=== PATIENT | female | born 1980 | race Caucasian/White ===

== ENCOUNTER → 2023-08-20 17:38 | Outpatient (REF) | payer BC, SELFPAY | LOC: WDC 17:38 | PROVIDERS: ATTENDING PHYSICIAN Internal Medicine | DX: Z12.31 Encounter for screening mammogram for malignant neoplasm of breast (principal); E07.89 Other specified disorders of thyroid | CPT/HCPCS: 76536; 77063; 77067 ==

== ENCOUNTER → 2024-08-23 19:11 | Outpatient (REF) | payer BC, SELFPAY | LOC: WDC 19:11 | PROVIDERS: ATTENDING PHYSICIAN Obstetrics & Gynecology Gynecology; FAMILY PHYSICIAN Nurse Practitioner Adult Health; PRIMARYCARE PHYSICIAN Internal Medicine | DX: Z12.31 Encounter for screening mammogram for malignant neoplasm of breast (principal) | CPT/HCPCS: 77063; 77067 ==

== ENCOUNTER → 2024-08-31 10:11 | Outpatient (REF) | payer BC, SELFPAY | LOC: WDC 10:11 | PROVIDERS: ATTENDING PHYSICIAN Obstetrics & Gynecology Gynecology; FAMILY PHYSICIAN Nurse Practitioner Adult Health | DX: R92.8 Other abnormal and inconclusive findings on diagnostic imaging of breast (principal) | CPT/HCPCS: 76642 ==

== ENCOUNTER → 2024-11-15 17:30 | Outpatient (REF) | payer BC, SELFPAY | LOC: RAD 17:30 | PROVIDERS: ATTENDING PHYSICIAN Internal Medicine Endocrinology, Diabetes & Metabolism; FAMILY PHYSICIAN Nurse Practitioner Adult Health | DX: E06.3 Autoimmune thyroiditis (principal); E04.0 Nontoxic diffuse goiter | CPT/HCPCS: 76536 ==

== ENCOUNTER 2025-07-11 06:37 | Emergency (ER) | payer BC, SELFPAY ==
--- NOTE | 2025-07-11 07:56 | ED.GENMED ---
History of Present Illness
General
Chief Complaint: Musculo-Skeletal Complaint
Source: patient
Time Seen by Provider: 07/11/25 07:20
History of Present Illness
History of Present Illness:
45-year-old female presenting to the emergency department for evaluation of right shoulder/bicep pain that started yesterday afternoon, with significant limited range of motion due to the pain, states that despite Aleve and an old prescription of
Vicodin she was still having significant pain this morning, attempted to go to the bathroom and after getting to the bathroom and the amount of pain she was and started to feel lightheaded and near syncopal so she laid on the ground for an extended
period of time, no longer feels syncopal. She did contact [facility] and was able to make an appointment for tomorrow with Dr. Coreas who she saw for a frozen shoulder in her left arm a few years back. She states that while the pain does feel little
bit similar to the frozen shoulder she said she has pain with any range of motion which is slightly different. Patient does note that she was shoveling snow/ice on Friday which could have been a potential trigger for her presenting symptoms
Past History
Past History
ED Past Medical History: Asthma and Other (Postconcussive syndrome)
ED Past Surgical History: , Gynecological and Orthopedic
Social History
Tobacco: Non-smoker
Alcohol: None
Drug: None
Personal:
Living: with family
Employment: Employed
Family History
Family History: Other (Noncontributory)
Review of Systems
Review of Systems
All Other Systems: ROS reviewed and negative except as documented in HPI and ROS
Phy Exam
Physical Exam
Physical Exam:
GENERAL: Alert , in no apparent distress but does appear in pain especially with attempted movements of the right shoulder
EYE: conjunctiva clear
Head: Normocephalic atraumatic
NECK: Supple,
ENT: mmm.
LUNGS: no acute respiratory distress
NEUROLOGICAL: Alert and oriented
SKIN: Warm and dry, skin intact.
MUSCULOSKELETAL: Right upper extremity: No obvious deformity, erythema, edema, ecchymosis, abrasions or lacerations. There is tenderness over the lateral aspect of the humeral head extending down towards the deltoid. Extremities otherwise warm
well-perfused. Easily palpable radial pulse.
PSYCH: Normal and appropriate interaction.
Scores
Heart Failure Risk
Heart Failure Risk Score: Not Applicable
Heart Score for Chest Pain Patients
STEMI patient?: Not applicable
Withdrawal Assessment of Alcohol
Withdrawal Assessment Completed?: Not applicable
Course
Orders/Labs/Results
Orders:
Orders
07/11/25 06:53
Shoulder, Right, Trauma [CR Shoulder, Trauma - Right] Urgent
Comment:
Reason For Exam: R shoulder and bicep pain
07/11/25 07:56
Ketorolac [Toradol] 60 mg IM NOW STA
Vital Signs
Initial and Last Documented VS:
Initial Vital Signs
Temp Resp
98.2 F 16
07/11/25 06:48 07/11/25 06:48
Last Documented Vital Signs
Temp Resp
98.2 F 16
07/11/25 06:48 07/11/25 06:48
MDM/Problems Addressed
Differential Diagnosis Includes:
Tendinitis
Bursitis
Frozen shoulder
Less concern for fracture or dislocation given lack of trauma
MDM/Problems Addressed:
45-year-old female presenting the ER for evaluation of nontraumatic right shoulder pain and significant limited range of motion. History of frozen shoulder to the left arm but this feels a little bit different. X-ray does show what appears to be
calcific tendinitis overlying the humeral head and given the location of patient's pain I do suspect tendinitis is the most likely diagnosis. Will treat here with Toradol, continue NSAIDs at home. Patient states she is very sensitive to pain
medication, will attempt Skelaxin as she has tolerated this in the past. Patient scheduled to see orthopedics tomorrow for further care.
*Radiology
Radiology exam reviewed: preliminary read by ED provider ( calcific tendinosis, no fracture)
*Pulse Oximetry
SaO2: 98
Oxygen Mode of Delivery: Room air
Patient hypoxic: no
*Critical Care Note
Total Time (30-74mins, 75-104mins- exclusive of procedures): Not Applicable
ED Attending Note
-
Portions of this chart may have been created with voice recognition software.� Occasional wrong word or��sound alike� substitutions may have occurred due to the inherent limitations of voice recognition software.
Discharge Plan
Departure
Patient Disposition: Home (Routine Discharge)
Date of Disposition: 07/11/25
Time of Disposition: 07:56
Patient with high blood pressure during this ER visit?: No
Discharge Problem:
Acute pain of right shoulder
Instructions: Shoulder pain - ED (DC)
Prescriptions:
New
metaxalone 400 mg tablet
800 mg PO TID PRN (Reason: muscle pain) Qty: 12 0RF
No Action
albuterol sulfate 1 PUFF HFA aerosol inhaler
1 puff inhalation QIDPRN PRN (Reason: QUICK RELIEF OF WHEEZING ONLY) Qty: 1 0RF
Katie
1 tab PO DAILY
pantoprazole [Protonix] 40 mg tablet,delayed release (DR/EC)
40 mg PO DAILY Qty: 30 0RF
Referrals:
Lovely Urrutia CRNP [Family Provider, General]
Interventions
Interventions:
*General Assessment Last Done: 07/11/25 08:14
*Neglect/Abuse Screening Last Done: 07/11/25 08:14
*ED COVID-19 Vaccine History Last Done: 07/11/25 08:14
*ED Influenza Vaccine History Last Done: 07/11/25 08:14
[facility] Fall Risk Assessment Tool Last Done: 07/11/25 08:14
*Risk Screen - Suicide (C-SSRS) Last Done: 07/11/25 06:48
*Nursing Disposition Last Done: 07/11/25 08:17
ED-Musculoskeletal Assessment Last Done: 07/11/25 08:14
Discharge Date and Time
Print Language: TURKISH
[2025-07-11] MEDS: TORADOL 60 MG IM (08:06)
[2025-07-11 08:14] VITALS: BP 135/71; BMI 26.8
== END 2025-07-11 08:18 | disposition home or self-care (01) ==
LOC: EMR 06:37
PROVIDERS: EMERGENCY PHYSICIAN Emergency Medicine; FAMILY PHYSICIAN Nurse Practitioner Adult Health
DX: R55 Syncope and collapse (principal); M25.511 Pain in right shoulder; J45.909 Unspecified asthma, uncomplicated
CPT/HCPCS: 99284; 96372; 73030